=== PATIENT | female | born 1975 ===

== ENCOUNTER 2017-10-14 19:01 | Observation (INO) | payer OTHER ==
--- NOTE | 2017-10-14 21:21 | ED PDOC ---
HPI: Female Pain Time Seen by Provider: 10/14/17 20:07 Chief Complaint (Nursing): Abdominal Pain Chief Complaint (Provider): Vaginal bleeding History Per: Patient History/Exam Limitations: no limitations Onset/Duration Of Symptoms: Days (1) Current Symptoms Are (Timing): Still Present Additional Complaint(s): 42yo female, comes to ER for evaluation of vaginal bleeding since today. Patient states her LMP was 2 months ago and today,s he has used approximately 8 pads. She reports her menstrual cycle is regular and she is not ; patient states she missed last month's menstrual period. She reports associated pelvic pain and nausea but denies any vomiting. She reports malaise and fatigue and decrease tolerance with daily activities. She denies any lightheadedness, blood per rectum, hematemesis. She denies any chronic illnesses. Patient offers no additional medical complaints. Abnormal Vaginal Bleeding: Yes Last Menstral Period: 2 months ago Past Medical History Reviewed: Historical Data, Nursing Documentation, Vital Signs Vital Signs: Last Vital Signs Temp 98.2 F 10/14/17 19:13 Pulse 68 10/14/17 19:13 Resp 18 10/14/17 19:13 BP 110/71 10/14/17 19:13 Pulse Ox 100 10/14/17 19:13 - Medical History PMH: No Chronic Diseases - Surgical History Surgical History: - Family History Family History: States: No Known Family Hx - Allergies Allergies/Adverse Reactions: Allergies Allergy/AdvReac Type Severity Reaction Status Date / Time No Known Allergies Allergy Verified 10/14/17 19:13 Review of Systems ROS Statement: Except As Marked, All Systems Reviewed And Found Negative (per HPI) Constitutional: Positive for: Weakness, Malaise Gastrointestinal: Positive for: Nausea. Negative for: Vomiting Genitourinary Female: Positive for: Vaginal Bleeding, Pelvic Pain Physical Exam - Reviewed Nursing Documentation Reviewed: Yes Vital Signs Reviewed: Yes - Physical Exam Appears: Positive for: Non-toxic, In Acute Distress (mild painful distress) Head Exam: Positive for: ATRAUMATIC, NORMAL INSPECTION, NORMOCEPHALIC Skin: Positive for: Warm, Pallor Eye Exam: Positive for: EOMI, Normal appearance, PERRL Neck: Positive for: Normal, Painless ROM Cardiovascular/Chest: Positive for: Regular Rate, Rhythm Respiratory: Positive for: CNT, Normal Breath Sounds Gastrointestinal/Abdominal: Positive for: Soft, Tenderness (suprapubic tenderness to palpation). Negative for: Mass, Guarding, Rebound Pelvic Exam: Positive for: External Exam Normal, Active Bleeding, Blood ( moderate in vault and oozing from cervix) Back: Positive for: Normal Inspection. Negative for: L CVA Tenderness, R CVA Tenderness Extremity: Positive for: Normal ROM Neurologic/Psych: Positive for: Alert, Oriented - Laboratory Results Result Diagrams: 10/14/17 22:00 10/14/17 22:00 - ECG O2 Sat by Pulse Oximetry: 100 (RA) Pulse Ox Interpretation: Normal Medical Decision Making Medical Decision Making: Impression: Vaginal bleeding Differential: Dysfunctional uterine bleeding, uterine fibroid, menorrhagia, anemia Plan: -- Labs -- US transvaginal Time: 2152 US Transvaginal FINDINGS: Uterus/cervix: 2 cm intramural fibroid anterior uterus. Endometrial stripe measures 9 mm in thickness. Right ovary: Unremarkable. No mass. Normal blood flow. Left ovary: Unremarkable. No mass. Normal blood flow. Free fluid: No free fluid. IMPRESSION: 2 cm intramural fibroid anterior uterus 2302 Patient with severe microcytic anemia. Discussed case with Dr. Haskins, RADIOLOGY EQUIPMENT SERVICER documentation spec, patient will be hospitalized for serial blood work. Scribe Attestation: Documented by Latia Bowman, acting as a scribe for Bonnie Almeida MD Provider Scribe Attestation: All medical record entries made by the Scribe were at my direction and personally dictated by me. I have reviewed the chart and agree that the record accurately reflects my personal performance of the history, physical exam, medical decision making, and the department course for this patient. Disposition - Clinical Impression Clinical Impression: Fibroid, Vaginal bleeding, Microcytic anemia - Patient ED Disposition Is Patient to be Admitted: Yes - Disposition Disposition Time: 23:02 Condition: FAIR Forms: [employer] (Greenlandic)
[2017-10-14 22:10] LABS: BASO # 0.1 K/uL (0.0-0.2); BASO % 0.7 % (0.0-2.0); EOS # 0.1 K/uL (0.0-0.7); EOS % 0.6 % (0.0-4.0); HEMOGLOBIN 7.5 g/dL (12.0-16.0); LYMPH # 2.5 K/uL (1.0-4.3); LYMPH % 27.1 % (20.0-40.0); MEAN CELL VOLUME 55.9 fl (81.0-99.0); MEAN CORPUSCULAR HEMOGLOBIN 16.2 pg (27.0-31.0); MEAN PLATELET VOLUME 8.5 fl (7.2-11.7); MONO # 0.5 K/uL (0.0-0.8); MONO % 5.5 % (0.0-10.0); NEUT # 6.1 K/uL (1.8-7.0); NEUT % 66.1 % (50.0-75.0); NRBC % 0.1 % (0.0-0.0); RBC 4.65 Mil/uL (3.80-5.20); RED CELL DISTRIBUTION WIDTH 20.9 % (11.5-14.5); WHITE BLOOD COUNT 9.3 K/uL (4.8-10.8)
[2017-10-14 22:19] LABS: ALB/GLOB RATIO 1.2 (1.0-2.1); ALBUMIN 4.5 g/dL (3.5-5.0); ALT/SGPT 23 U/L (9-52); AST/SGOT 28 U/L (14-36); BLOOD UREA NITROGEN 7 mg/dl (7-17); CALCIUM 9.2 mg/dL (8.4-10.2); GFR NON-AFRICAN AMERICAN > 60
[2017-10-14 22:33] LABS: INR 1.1; PROTHROMBIN TIME 12.6 Seconds (9.8-13.1)
[2017-10-14 22:36] LABS: PARTIAL THROMBOPLASTIN TIME 31.7 Seconds (25.6-37.1)
[2017-10-14] MEDS ORDERED: Lactated Ringer's 1,000 ML IV STA (22:46)
[2017-10-14 23:20] LABS: IRON < 10 ug/dL (37-170)
[2017-10-14 23:24] LABS: TOTAL IRON BINDING CAPACITY 494 ug/dL (250-450)
[2017-10-14 23:29] LABS: % IRON SATURATION < 2 % (20-55)
[2017-10-14 23:45] LABS: FERRITIN 2.8 ng/Ml (6.24-137.0)
--- NOTE | 2017-10-14 23:57 | CP.PCM.HP ---
History of Present Illness - History of Present Illness History of Present Illness: 42 y/o female w/ no significant pmh c/o heavy vaginal bleeding that began yesterday. She reports using 10 pads in one day. This is the first time this occurs. She also c/o nausea, and suprapubic pain. Denies vomiting, headaches, dizziness, numbness/tingling. She states that her last LMP was 07/23/2017, but her cycle is usually regular, 28-day cycles, w/ normal blood loss, menarche age 14. PMD: none PMHx: none Past surgical hx: 3 c-sections Family Hx: non-contributory Social hx: denies etoh, tobacco, and recreational drug use OBGYN hx: , 3 c-sections, LMP: 07/23/2017 Home rx: none Allergies:NKDA Code: Full Code ED Course: Labs: CBC, CMP, Coags, Iron studies, B12, Folate, Chlamydia/GC RNA Urine dipstick, urine Type and screen, cross match Toradol 15mg IVP once for pain mgmt LR 1L bolus Transvaginal u/s: 2 cm intramural fibroid anterior uterus. Endometrial stripe measures 9 mm in thickness. [facility] continuity coordinator [id number] Present on Admission - Present on Admission Any Indicators Present on Admission: No History of DVT/PE: No History of Uncontrolled Diabetes: No Urinary Catheter: No Decubitus Ulcer Present: No Review of Systems - Cardiovascular Cardiovascular: absent: Chest Pain, Lightheadedness, Palpitations, Syncope - Gastrointestinal Gastrointestinal: Abdominal Pain. absent: Constipation, Diarrhea, Hematemesis, Hematochezia - Genitourinary Genitourinary: absent: Dysuria, Urinary Frequency, Urinary Urgency - Reproductive: Female Reproductive:Female: Currently Menstual, Heavy Menses, Abnormal Vaginal Bleeding , Pelvic Pain - Neurological Neurological: absent: Dizziness, Numbness - Hematologic/Lymphatic Hematologic: absent: Easy Bleeding, Easy Bruising Past Patient History - Infectious Disease Hx of Infectious Diseases: None - Tetanus Immunizations Tetanus Immunization: Unknown - Past Medical History & Family History Past Medical History?: No Past Family History: Reviewed and not pertinent - Past Social History Smoking Status: Never Smoked Alcohol: None Drugs: Denies - PSYCHIATRIC Hx Substance Use: No - SURGICAL HISTORY Hx Surgeries: Yes Hx Section: Yes - ANESTHESIA Hx Anesthesia: Yes Hx Anesthesia Reactions: No Meds Allergies/Adverse Reactions: Allergies Allergy/AdvReac Type Severity Reaction Status Date / Time No Known Allergies Allergy Verified 10/14/17 19:13 Physical Exam - Constitutional Appears: No Acute Distress - Head Exam Head Exam: ATRAUMATIC - Eye Exam Eye Exam: Normal appearance - ENT Exam ENT Exam: Mucous Membranes Moist - Respiratory Exam Respiratory Exam: Clear to Auscultation Bilateral, NORMAL BREATHING PATTERN - Cardiovascular Exam Cardiovascular Exam: REGULAR RHYTHM, RRR, +S1, +S2 - GI/Abdominal Exam GI & Abdominal Exam: Normal Bowel Sounds, Soft, Tenderness (suprapubic). absent : Guarding, Rebound - Exam External exam: NORMAL EXTERNAL EXAM (Poultry Farm Manager: Dr. Haskins) - Extremities Exam Extremities exam: Positive for: normal inspection. Negative for: pedal edema, tenderness - Back Exam Back exam: NORMAL INSPECTION. absent: CVA tenderness (L), CVA tenderness (R) - Neurological Exam Neurological exam: Alert, Oriented x3 - Skin Skin Exam: Dry, Intact, Warm Results - Vital Signs Recent Vital Signs: Last Vital Signs Temp 98.2 F 10/14/17 19:13 Pulse 68 10/14/17 19:13 Resp 18 10/14/17 19:13 BP 110/71 10/14/17 19:13 Pulse Ox 100 10/14/17 23:16 - Labs Result Diagrams: 10/14/17 22:00 10/14/17 22:00 Labs: Laboratory Results - last 24 hr 10/14/17 10/14/17 10/14/17 22:00 22:00 22:00 WBC 9.3 RBC 4.65 Hgb 7.5 L Hct 26.0 L MCV 55.9 L MCH 16.2 L MCHC 29.0 L RDW 20.9 H Plt Count 510 H MPV 8.5 Neut % (Auto) 66.1 Lymph % (Auto) 27.1 [place] % (Auto) 5.5 Eos % (Auto) 0.6 Baso % (Auto) 0.7 Neut # (Auto) 6.1 Lymph # (Auto) 2.5 [place] # (Auto) 0.5 Eos # (Auto) 0.1 Baso # (Auto) 0.1 PT 12.6 INR 1.1 APTT 31.7 Sodium 141 Potassium 4.0 Chloride 106 Carbon Dioxide 26 Anion Gap 13 BUN 7 Creatinine 0.7 Est GFR ( Amer) > 60 Est GFR (Non-Af Amer) > 60 Random Glucose 95 Calcium 9.2 Iron TIBC % Saturation Ferritin Total Bilirubin 0.7 AST 28 ALT 23 Alkaline Phosphatase 77 Total Protein 8.2 Albumin 4.5 Globulin 3.7 Albumin/Globulin Ratio 1.2 10/14/17 10/14/17 22:47 22:47 WBC RBC Hgb Hct MCV MCH MCHC RDW Plt Count MPV Neut % (Auto) Lymph % (Auto) [place] % (Auto) Eos % (Auto) Baso % (Auto) Neut # (Auto) Lymph # (Auto) [place] # (Auto) Eos # (Auto) Baso # (Auto) PT INR APTT Sodium Potassium Chloride Carbon Dioxide Anion Gap BUN Creatinine Est GFR ( Amer) Est GFR (Non-Af Amer) Random Glucose Calcium Iron < 10 L TIBC 494 H % Saturation < 2 L Ferritin 2.8 L Total Bilirubin AST ALT Alkaline Phosphatase Total Protein Albumin Globulin Albumin/Globulin Ratio Assessment & Plan - Assessment and Plan (Free Text) Assessment: 42 y/o female w/ c/o heavy vaginal bleeding that began yesterday, found to have hgb of 7.5 in ED. Plan: Microcytic anemia 2/2 menorrhagia -Admit to medsurg -hgb 7.5, transfuse 2 units PRBC -iron <10, TIBC 494, %saturation <2, Ferritin 2.8 -check CBC in AM -IVF hydration w/ NS 1L 125mL/hr Diet: -Regular diet DVT Prophylaxis: -SCDs - Date & Time Date: 10/14/17 Time: 11:30 Decision To Admit - Pt Status Changed To: Hospital Disposition Of: Inpatient - Admit Certification Admit to Inpatient:: After my assessment, the patient will require hospitalization for at least two midnights. This is because of the severity of symptoms shown, intensity of services needed, and/or the medical risk in this patient being treated as an outpatient. - . Bed Request Type: Med/Surg Admitting Physician: Burton Haskins
[2017-10-15] MEDS: Sodium Chloride 0.9% 1,000 ML IV SCH ×2 (01:05→08:14)
[2017-10-15 11:00] LABS: BASO # 0.1 K/uL (0.0-0.2); BASO % 1.2 % (0.0-2.0); EOS # 0.1 K/uL (0.0-0.7); EOS % 1.2 % (0.0-4.0); HEMOGLOBIN 9.6 g/dL (12.0-16.0); LYMPH # 1.8 K/uL (1.0-4.3); LYMPH % 28.1 % (20.0-40.0); MEAN CELL VOLUME 64.2 fl (81.0-99.0); MEAN CORPUSCULAR HEMOGLOBIN 20.4 pg (27.0-31.0); MEAN CORPUSCULAR HGB CONC 31.9 g/dL (33.0-37.0); MEAN PLATELET VOLUME 8.5 fl (7.2-11.7); MONO # 0.5 K/uL (0.0-0.8); MONO % 8.4 % (0.0-10.0); NEUT # 3.9 K/uL (1.8-7.0); NEUT % 61.1 % (50.0-75.0); NRBC % 0.1 % (0.0-0.0); RBC 4.67 Mil/uL (3.80-5.20); RED CELL DISTRIBUTION WIDTH 31.8 % (11.5-14.5); WHITE BLOOD COUNT 6.3 K/uL (4.8-10.8)
--- NOTE | 2017-10-15 12:41 | US ---
Date of service: 10/14/2017 HISTORY: Vaginal bleeding COMPARISON: None available. TECHNIQUE: Transabdominal/ transvaginal sonographic evaluation of the pelvis performed. FINDINGS: UTERUS: Measures 9.4 x 6.3 x 4.7 cm. Normal in size and appearance. . There is an approximately 2 cm x 1.7 cm x 1.2 cm intramural fibroid seen within the anterior uterine body. . ENDOMETRIUM: Endometrium measures approximately 9.0 mm in diameter. Unremarkable. CERVIX: No cervical abnormality identified. RIGHT OVARY: Measures approximately 3.8 x 3.5 x 2.1 however cm. No masses however there is a simple appearing right ovarian cyst measuring 1.5 x 1.5 x 1.9 cm. Normal flow. LEFT OVARY: Not visualized FREE FLUID: No significant free fluid noted. OTHER FINDINGS: None. IMPRESSION: 2 cm intramural fibroid within the anterior uterine body Simple cyst right ovary. Left ovary not visualized
--- NOTE | 2017-10-15 12:42 | CP.PCM.PN ---
Subjective - Date & Time of Evaluation Date of Evaluation: 10/15/17 Time of Evaluation: 12:15 - Subjective Subjective: Patient seen and evaluated at bedside today. Patient is S/P 2 PRBC transfusion which she tolerated well. Reports felling much better. Improvement in vaginal bleeding and fatigue. Denies any fever, chills, nausea, vomiting, abdominal pain , CP or SOB. Objective - Vital Signs/Intake and Output Vital Signs (last 24 hours): Temp Pulse Resp BP Pulse Ox 98.1 F 106 H 20 97/59 L 95 10/15/17 10:45 10/15/17 10:45 10/15/17 10:45 10/15/17 10:45 10/15/17 07:33 Intake and Output: 10/15/17 10/15/17 06:59 18:59 Intake Total 400 375 Balance 400 375 - Medications Medications: Current Medications Sodium Chloride (Sodium Chloride 0.9%) 1,000 mls @ 125 mls/hr IV .Q8H KEN Stop: 10/15/17 15:44 Last Admin: 10/15/17 08:14 Dose: Not Given - Labs Labs: 10/15/17 10:30 10/14/17 22:00 PT 12.6 Seconds (9.8-13.1) 10/14/17 22:00 INR 1.1 10/14/17 22:00 APTT 31.7 Seconds (25.6-37.1) 10/14/17 22:00 - Constitutional Appears: Well, No Acute Distress - Head Exam Head Exam: ATRAUMATIC, NORMAL INSPECTION, NORMOCEPHALIC - Eye Exam Pupil Exam: PERRL - ENT Exam ENT Exam: Mucous Membranes Moist - Respiratory Exam Respiratory Exam: Clear to Ausculation Bilateral, NORMAL BREATHING PATTERN. absent: Rales, Rhonchi, Wheezes - Cardiovascular Exam Cardiovascular Exam: REGULAR RHYTHM, +S1, +S2. absent: Murmur - Rectal Exam Rectal Exam: Deferred - Extremities Exam Extremities Exam: absent: Pedal Edema, Tenderness - Neurological Exam Neurological Exam: Alert, Awake, Oriented x3 - Psychiatric Exam Psychiatric exam: Normal Affect, Normal Mood Assessment and Plan - Assessment and Plan (Free Text) Assessment: 42 y/o female w/ c/o heavy vaginal bleeding that began yesterday, found to have hgb of 7.5 in ED. S/P 2 PRBC transfusion Plan: Microcytic anemia 2/2 menorrhagia -Improvement in menorrhagia -Repeat hgb 9.6(improved from 7.5), S/P transfuse 2 units PRBC -Iron <10, TIBC 494, %saturation <2, Ferritin 2.8 -IVF hydration w/ NS 1L 125mL/hr -F/U with Dr. Moreno at [facility] within 1-2 weeks upon discharge Hypotension and Tachycardia - Persists - HR 106, BP 97/59 - Negative for Orthostatics, Repeat BP standing 80/58 - Hospitalist consult - Consider discharge home once stable and cleared by hospitalist
[2017-10-15 12:45] LABS: FOLATE 7.8 ng/mL
--- NOTE | 2017-10-15 14:30 | CP.PCM.CON ---
History of Present Illness - History of Present Illness History of Present Illness: 42 yo female admitted under GYNE service because of heavy vaginal bleeding causing symptomatic anemia yesterday. She received 2 units of PRBC raising her Hgb from 7.5 to 9.6. She presently denied dizziness, chest pain or SOB. Heart rate check manually was 64 and BP 100/60. Both vital signs were basically her baseline. Patient was asymptomatic and had stable vital signs when seen. She medically for discharge. Past Patient History - Infectious Disease Hx of Infectious Diseases: None - Tetanus Immunizations Tetanus Immunization: Unknown - Past Medical History & Family History Past Medical History?: No Past Family History: Reviewed and not pertinent - Past Social History Smoking Status: Never Smoked Alcohol: None Drugs: Denies - MUSCULOSKELETAL/RHEUMATOLOGICAL Hx Falls: No - PSYCHIATRIC Hx Substance Use: No - SURGICAL HISTORY Hx Surgeries: Yes Hx Section: Yes - ANESTHESIA Hx Anesthesia: Yes Hx Anesthesia Reactions: No Meds Allergies/Adverse Reactions: Allergies Allergy/AdvReac Type Severity Reaction Status Date / Time No Known Allergies Allergy Verified 10/14/17 19:13 - Medications Medications: Current Medications Sodium Chloride (Sodium Chloride 0.9%) 1,000 mls @ 125 mls/hr IV .Q8H KEN Stop: 10/15/17 15:44 Last Admin: 10/15/17 08:14 Dose: Not Given Results - Vital Signs Recent Vital Signs: Last Vital Signs Temp 98.1 F 10/15/17 10:45 Pulse 106 H 10/15/17 10:45 Resp 20 10/15/17 10:45 BP 97/59 L 10/15/17 10:45 Pulse Ox 95 10/15/17 07:33 - Labs Result Diagrams: 10/15/17 10:30 10/14/17 22:00 Labs: Laboratory Results - last 24 hr 10/14/17 10/14/17 10/14/17 22:00 22:00 22:00 WBC 9.3 RBC 4.65 Hgb 7.5 L Hct 26.0 L MCV 55.9 L MCH 16.2 L MCHC 29.0 L RDW 20.9 H Plt Count 510 H MPV 8.5 Neut % (Auto) 66.1 Lymph % (Auto) 27.1 [place] % (Auto) 5.5 Eos % (Auto) 0.6 Baso % (Auto) 0.7 Neut # (Auto) 6.1 Lymph # (Auto) 2.5 [place] # (Auto) 0.5 Eos # (Auto) 0.1 Baso # (Auto) 0.1 PT 12.6 INR 1.1 APTT 31.7 Sodium 141 Potassium 4.0 Chloride 106 Carbon Dioxide 26 Anion Gap 13 BUN 7 Creatinine 0.7 Est GFR ( Amer) > 60 Est GFR (Non-Af Amer) > 60 Random Glucose 95 Calcium 9.2 Iron TIBC % Saturation Ferritin Total Bilirubin 0.7 AST 28 ALT 23 Alkaline Phosphatase 77 Total Protein 8.2 Albumin 4.5 Globulin 3.7 Albumin/Globulin Ratio 1.2 Vitamin B12 Folate Blood Type Blood Type Confirm Antibody Screen Crossmatch BBK History Checked 10/14/17 10/14/17 10/14/17 22:00 22:47 22:47 WBC RBC Hgb Hct MCV MCH MCHC RDW Plt Count MPV Neut % (Auto) Lymph % (Auto) [place] % (Auto) Eos % (Auto) Baso % (Auto) Neut # (Auto) Lymph # (Auto) [place] # (Auto) Eos # (Auto) Baso # (Auto) PT INR APTT Sodium Potassium Chloride Carbon Dioxide Anion Gap BUN Creatinine Est GFR ( Amer) Est GFR (Non-Af Amer) Random Glucose Calcium Iron < 10 L TIBC 494 H % Saturation < 2 L Ferritin 2.8 L Total Bilirubin AST ALT Alkaline Phosphatase Total Protein Albumin Globulin Albumin/Globulin Ratio Vitamin B12 765 Folate 7.8 Blood Type O POSITIVE Blood Type Confirm Antibody Screen Negative Crossmatch See Detail BBK History Checked No verified bt 10/15/17 10/15/17 10:30 23:00 WBC 6.3 RBC 4.67 Hgb 9.6 L D Hct 30.0 L MCV 64.2 L D MCH 20.4 L MCHC 31.9 L RDW 31.8 H Plt Count 419 H MPV 8.5 Neut % (Auto) 61.1 Lymph % (Auto) 28.1 [place] % (Auto) 8.4 Eos % (Auto) 1.2 Baso % (Auto) 1.2 Neut # (Auto) 3.9 Lymph # (Auto) 1.8 [place] # (Auto) 0.5 Eos # (Auto) 0.1 Baso # (Auto) 0.1 PT INR APTT Sodium Potassium Chloride Carbon Dioxide Anion Gap BUN Creatinine Est GFR ( Amer) Est GFR (Non-Af Amer) Random Glucose Calcium Iron TIBC % Saturation Ferritin Total Bilirubin AST ALT Alkaline Phosphatase Total Protein Albumin Globulin Albumin/Globulin Ratio Vitamin B12 Folate Blood Type Blood Type Confirm O POSITIVE Antibody Screen Crossmatch BBK History Checked
[2017-10-15 16:16] VITALS: BP 99/61; PULSE 50; RESP 18; TEMP 98.8; O2SAT 99
--- NOTE | 2017-10-16 06:51 | CP.PCM.DIS ---
Provider - Provider Date of Admission: 10/14/17 22:58 Attending physician: Burton Haskins MD Consults: Hospitalist - Dr. birch Time Spent in preparation of Discharge (in minutes): 15 Diagnosis - Discharge Diagnosis (1) Menorrhagia Status: Acute (2) GABE (iron deficiency anemia) Status: Chronic Hospital Course - Lab Results Lab Results: Most Recent Lab Values WBC 6.3 K/uL (4.8-10.8) 10/15/17 10:30 RBC 4.67 Mil/uL (3.80-5.20) 10/15/17 10:30 Hgb 9.6 g/dL (12.0-16.0) L D 10/15/17 10:30 Hct 30.0 % (34.0-47.0) L 10/15/17 10:30 MCV 64.2 fl (81.0-99.0) L D 10/15/17 10:30 MCH 20.4 pg (27.0-31.0) L 10/15/17 10:30 MCHC 31.9 g/dL (33.0-37.0) L 10/15/17 10:30 RDW 31.8 % (11.5-14.5) H 10/15/17 10:30 Plt Count 419 K/uL (130-400) H 10/15/17 10:30 MPV 8.5 fl (7.2-11.7) 10/15/17 10:30 Neut % (Auto) 61.1 % (50.0-75.0) 10/15/17 10:30 Lymph % (Auto) 28.1 % (20.0-40.0) 10/15/17 10:30 [place] % (Auto) 8.4 % (0.0-10.0) 10/15/17 10:30 Eos % (Auto) 1.2 % (0.0-4.0) 10/15/17 10:30 Baso % (Auto) 1.2 % (0.0-2.0) 10/15/17 10:30 Neut # (Auto) 3.9 K/uL (1.8-7.0) 10/15/17 10:30 Lymph # (Auto) 1.8 K/uL (1.0-4.3) 10/15/17 10:30 [place] # (Auto) 0.5 K/uL (0.0-0.8) 10/15/17 10:30 Eos # (Auto) 0.1 K/uL (0.0-0.7) 10/15/17 10:30 Baso # (Auto) 0.1 K/uL (0.0-0.2) 10/15/17 10:30 PT 12.6 Seconds (9.8-13.1) 10/14/17 22:00 INR 1.1 10/14/17 22:00 APTT 31.7 Seconds (25.6-37.1) 10/14/17 22:00 Sodium 141 mmol/l (132-148) 10/14/17 22:00 Potassium 4.0 MMOL/L (3.6-5.0) 10/14/17 22:00 Chloride 106 mmol/L (98-107) 10/14/17 22:00 Carbon Dioxide 26 mmol/L (22-30) 10/14/17 22:00 Anion Gap 13 (10-20) 10/14/17 22:00 BUN 7 mg/dl (7-17) 10/14/17 22:00 Creatinine 0.7 mg/dl (0.7-1.2) 10/14/17 22:00 Est GFR ( Amer) > 60 10/14/17 22:00 Est GFR (Non-Af Amer) > 60 10/14/17 22:00 Random Glucose 95 mg/dL (65-105) 10/14/17 22:00 Calcium 9.2 mg/dL (8.4-10.2) 10/14/17 22:00 Iron < 10 ug/dL (37-170) L 10/14/17 22:47 TIBC 494 ug/dL (250-450) H 10/14/17 22:47 % Saturation < 2 % (20-55) L 10/14/17 22:47 Ferritin 2.8 ng/Ml (6.24-137.0) L 10/14/17 22:47 Total Bilirubin 0.7 mg/dl (0.2-1.3) 10/14/17 22:00 AST 28 U/L (14-36) 10/14/17 22:00 ALT 23 U/L (9-52) 10/14/17 22:00 Alkaline Phosphatase 77 U/L (38-126) 10/14/17 22:00 Total Protein 8.2 G/DL (6.3-8.2) 10/14/17 22:00 Albumin 4.5 g/dL (3.5-5.0) 10/14/17 22:00 Globulin 3.7 gm/dL (2.2-3.9) 10/14/17 22:00 Albumin/Globulin Ratio 1.2 (1.0-2.1) 10/14/17 22:00 Vitamin B12 765 pg/mL (239-931) 10/14/17 22:47 Folate 7.8 ng/mL 10/14/17 22:47 Blood Type O POSITIVE 10/14/17 22:00 Blood Type Confirm O POSITIVE 10/15/17 23:00 Antibody Screen Negative 10/14/17 22:00 Crossmatch See Detail 10/14/17 22:00 BBK History Checked No verified bt 10/14/17 22:00 - Hospital Course Hospital Course: 42 y/o female w/ no significant PMHx presents with heavy vaginal bleeding started 1 day ago and using 10 pads in one day with associated nausea, and suprapubic pain. Patient evaluated in ED and admitted. Labs: CBC, CMP, Coags, Iron studies, B12, Folate, Chlamydia/GC, Urine dipstick, urine , Type and screen, cross match done in ED. Transvaginal u/s: 2 cm intramural fibroid anterior uterus and endometrial thickness of 9mm. Patient received LR 1L bolus followed by 2 units PRBC transfusion with improvement in hemoglobin and symptoms. Hospitalist consulted and cleared patient medically. Patient to be discharged home with Feosol 325 mg tab and to F/U with Dr. Moreno at [facility] in 1-2 weeks. Discharge Medications Feosol 325 mg PO daily #30 with 2 refills Discharge Exam - Head Exam Head Exam: ATRAUMATIC, NORMAL INSPECTION, NORMOCEPHALIC - Eye Exam Eye Exam: Normal appearance, PERRL - ENT Exam ENT Exam: Mucous Membranes Moist - Neck Exam Neck exam: Full Rom - Respiratory Exam Respiratory Exam: Clear to PA & Lateral. absent: Rales, Rhonchi, Wheezes - Cardiovascular Exam Cardiovascular Exam: REGULAR RHYTHM. absent: +S1, +S2, Systolic Murmur - GI/Abdominal Exam GI & Abdominal Exam: Normal Bowel Sounds, Soft. absent: Firm, Guarding, Hernia , Tenderness - Back Exam Back exam: absent: CVA tenderness (L), CVA tenderness (R) - Neurological Exam Neurological exam: Alert, Oriented x3 - Psychiatric Exam Psychiatric exam: Normal Affect, Normal Mood - Skin Skin Exam: Dry, Intact, Normal Color Discharge Plan - Discharge Medications Prescriptions: Ferrous Sulfate [Feosol] 325 mg PO DAILY #30 tab - Follow Up Plan Condition: FAIR Disposition: HOME/ ROUTINE Instructions: Anemia Caused by Low Iron Additional Instructions: - Start Feosol 325 mg 1 tab daily - Patient advised to F/U with Dr. Moreno in 1-2 weeks - ED precautions provided Referrals: [facility] [place] [Outside] Tiana Carson MD [Staff Provider] -
== END 2017-10-15 19:00 | disposition home or self-care (01) ==
LOC: H.ER 19:01 → H.ERHOLD 22:58 → H.MEDSURG1 10-15 00:36
PROVIDERS: ADMIT Obstetrics & Gynecology; ATTEND Obstetrics & Gynecology
DX: N92.0 Excessive and frequent menstruation with regular cycle (principal); D50.9 Iron deficiency anemia, unspecified; D25.1 Intramural leiomyoma of uterus; I95.9 Hypotension, unspecified; R00.0 Tachycardia, unspecified
CPT/HCPCS: 36415; 36430; 76830; 80053; 81025; 82607; 82728; 82746; 83540; 83550; 85025; 85610; 85730; 86850; 86900; 86920; 87491; 87591; 96360; 96374; 99284; G0378; J1885; J7030; J7120; P9051

== ENCOUNTER 2018-06-23 15:33 | Emergency (ER) | payer OTHER, SELFPAY ==
[2018-06-23 16:29] VITALS: BP 120/70; PULSE 73; RESP 16; TEMP 98.5; O2SAT 99
--- NOTE | 2018-06-23 17:15 | ED PDOC ---
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 Patient notes she has never experienced these symptoms before. 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 Patient states pain is unrelieved by 200 mg of Advil last taken at 7 AM this morning. Otherwise: (-) history of back injury/ surgery, (-) fever, (-) saddle anesthesia, (-) numbness, (-) weakness, (-) urinary symptoms, (-) hematuria, (-) abdominal pain, (-) nausea, (-) vomiting, (-) diarrhea, (-) cough, (-) shortness of breath. PMD: no provider LNMP: 05/29/2018 Past Medical History Reviewed: Historical Data, Nursing Documentation, Vital Signs Vital Signs: Last Vital Signs Temp 98.5 F 06/23/18 16:29 Pulse 73 06/23/18 16:29 Resp 16 06/23/18 16:29 BP 120/70 06/23/18 16:29 Pulse Ox 99 06/23/18 16:29 Primary Care Provider: FAMILY PROVIDER,NO - Medical History PMH: No Chronic Diseases - Surgical History Surgical History: - Family History Family History: States: Unknown Family Hx - Home Medications Home Medications: Ambulatory Orders Medication Instructions Recorded Ferrous Sulfate [Feosol] 325 mg PO DAILY #30 tab 10/15/17 Cyclobenzaprine [Cyclobenzaprine 10 mg PO Q8 PRN #12 tab 06/23/18 HCl] Naproxen 500 mg PO BID PRN #20 tab 06/23/18 - Allergies Allergies/Adverse Reactions: Allergies Allergy/AdvReac Type Severity Reaction Status Date / Time No Known Allergies Allergy Verified 06/23/18 16:33 Review of Systems ROS Statement: Except As Marked, All Systems Reviewed And Found Negative Respiratory: Negative for: Cough, Shortness of Breath Gastrointestinal: Negative for: Nausea, Vomiting, Abdominal Pain, Diarrhea Genitourinary Female: Negative for: Dysuria, Frequency, Hematuria Musculoskeletal: Positive for: Back Pain Neurological: Negative for: Weakness, Numbness Physical Exam - Reviewed Nursing Documentation Reviewed: Yes Vital Signs Reviewed: Yes - Physical Exam Comments: GENERAL APPEARANCE: Patient is awake, alert, oriented x 3, in no acute distress. Resting comfortably. SKIN: Warm, dry; (-) cyanosis. EYES: (-) conjunctival injection ENMT: Mucous membranes moist. Airway patent, (-) stridor. NECK: Supple, FROM CHEST AND RESPIRATORY: (-) rales, (-) rhonchi, (-) wheezes; breath sounds equal bilaterally. Respirations even and nonlabored. HEART AND CARDIOVASCULAR: (-) irregularity ABDOMEN AND GI: Soft; (-) tenderness (-) distention (-) CVA tenderness BACK: (+) right paralumbar tenderness and right sciatic notch tenderness (- )spasm, (-) direct bony tenderness, (-) deformity. EXTREMITIES: (-) deformity. Distal pulses good bilaterally. NEURO AND PSYCH: Mental status as above. Intact sensation bilaterally; normal strength in extension of the knees, plantar and dorsiflexion of the toes. Gait: steady. Speech: clear. (-) facial asymmetry. Normal cognition. - Laboratory Results Urine POC: Negative Urine dip results: Negative for: Leukocyte Esterase, Blood, Nitrate, Glucose, Bilirubin, Protein - ECG O2 Sat by Pulse Oximetry: 99 (RA) Pulse Ox Interpretation: Normal Medical Decision Making Medical Decision Making: Time: 165 Impression: Acute Back Pain, Likely sciatica Plan: -- ED Urine -- ED Urine Dipstick -- Flexeril 10 mg PO (not driving home) -- Toradol 30 mg IM 1800 Udip reviewed and unremarkable. Upreg: negative On re-evaluation, patient reports improvement of symptoms. On exam, patient remains AAOx3, in no acute distress. Lungs clear to auscultation, cardiac RRR, abdomen soft, non-tender, repeat neuro exam shows no focal findings. VSS, stable for discharge. Lab/Diagnostic results d/w the patient in great detail. Diagnosis of acute back pain, probable sciatica d/w the patient. Based on history, exam and diagnostic results, plan will be for outpatient follow up with clinic. Patient instructed to follow-up with pmd / referral provided / the clinic in 1- 2 days without fail. Advised to take medication as prescribed. Return to the emergency room at any time for any new or worsening symptoms. Patient states she fully agrees with and understands discharge instructions. States that she agrees with the plan and disposition. Verbalized and repeated discharge instructions and plan. I have given the patient opportunity to ask any additional questions. Scribe Attestation: Documented by Bonnie Lazar, acting as a scribe Tori Gipson PA-C. Provider Scribe Attestation: All medical record entries made by the Scribe were at my direction and pers onally dictated by me. I have reviewed the chart and agree that the record accurately reflects my personal performance of the history, physical exam, medical decision making, and the department course for this patient. I have also personally directed, reviewed, and agree with the discharge instructions and disposition. Disposition - Clinical Impression Clinical Impression: Acute back pain, Low back pain, Sciatica of right side - Patient ED Disposition Is Patient to be Admitted: No Counseled Patient/Family Regarding: Studies Performed, Diagnosis, Need For Followup, Rx Given - Disposition Referrals: [facility] [Outside] Disposition: Routine/Home Disposition Time: 18:00 Condition: STABLE Additional Instructions: La atencin mdica de emergencia que recibi hoy se dirigi a emani sntomas agudos. Si le recetaron algn medicamento, llnelo y tmelo segn las indicaciones. Los sntomas pueden tardar varios silver en resolverse. Regrese al Departamento de Emergencias si emani sntomas empeoran, no mejoran o si tiene otros problemas. Comunquese con grimes mdico dentro de 2 silver para yuliana nueva evaluacin y wiley un seguimiento o llame a azra de los mdicos / clnicas a los que aparicio sido referido y que figuran en el formulario de Informacin de visita al paciente que se incluye en grimes paquete de elias. Lleve todos los documentos que recibi al momento del elias junto con los medicamentos que est tomando para grimes visita de seguimiento. Nuestro tratamiento no puede reemplazar la atencin mdica continua por parte de un proveedor de atencin primaria (PCP) fuera del departamento de emergencias. Prescriptions: Cyclobenzaprine [Cyclobenzaprine HCl] 10 mg PO Q8 PRN #12 tab PRN Reason: Muscle Spasm Naproxen 500 mg PO BID PRN #20 tab PRN Reason: Pain, Moderate (4-7) Instructions: Sciatica, Low Back Pain in Adults, Do I Need an X-ray (or Other Test) for Low Back Pain?, Sciatica Exercises Forms: [employer] (Uzbek) Print Language: DJIBOUTIAN - POA Present On Arrival: None
== END 2018-06-23 18:19 | disposition home or self-care (01) ==
LOC: H.ER 15:33
DX: M54.31 Sciatica, right side (principal)
CPT/HCPCS: 81025; 96372; 99283; J1885